=== PATIENT | female | born 1990 | race Caucasian/White ===

== ENCOUNTER → 2017-04-18 | Emergency (ER) | payer SELFPAY ==
[2017-04-18 05:11] VITALS: BP 132/110
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
== END ==
LOC: CANBEDREQ 05:15 → ER 05:32
DX: F10.920 Alcohol use, unspecified with intoxication, uncomplicated (principal); R00.0 Tachycardia, unspecified
CPT/HCPCS: 99283